=== PATIENT | male | born 1980 | race Caucasian/White ===

== ENCOUNTER 2017-04-27 17:31 | Emergency (ER) | payer BC ==
[~2017-04-27] VITALS: Ht 188 cm; Wt 68.0 kg
[2017-04-27] MEDS ORDERED: ZOLOFT100 MG PO (18:18)
[2017-04-27 19:04] LABS: ADD MIUA? NO; BILIRUBIN NEGATIVE; BLOOD NEGATIVE; COLOR YELLOW ((YELLOW)); GLUCOSE (STRIP) NEGATIVE; KETONES NEGATIVE; LEUKOCYTES NEGATIVE; NITRITE NEGATIVE; PROTEIN (STRIP) NEGATIVE; SPECIFIC GRAVITY 1.013 (1.000-1.030); UROBILINOGEN 0.2 MG/DL (0.2-1.0)
[2017-04-27] MEDS ORDERED: INDOCIN50 MG PO (20:59)
[2017-04-27 21:08] VITALS: BP 124/83
== END 2017-04-27 21:09 | disposition home or self-care (01) ==
LOC: EME 17:31
PROVIDERS: Physician Assistant
DX: S39.011A Strain of muscle, fascia and tendon of abdomen, initial encounter (principal)
CPT/HCPCS: 76870; 81003; 93975; 99281; 99284; J1885